=== PATIENT | female | born 2000 | race Caucasian/White ===

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

== ENCOUNTER 2018-03-27 10:14 | Day surgery (SDC) | payer OTHER ==
--- NOTE | 2018-03-27 09:54 | ANESTHESIA ---
Pre-Anesthesia VS, & Labs <Julio Davidson P - Last Filed: 03/27/18 09:48> - NPO >8 hours - Is Patient ?: No <Hawa Pettit - Last Filed: 03/27/18 11:08> - Diagnosis R ankle ATFL tear (Julio Davidson P) R ankle ATFL tear (Hawa Pettit) - Procedure R ankle Brostrom procedure (Julio Davidson P) R ankle Brostrom procedure (Hawa Pettit) Vital Signs: Temp Pulse Resp BP Pulse Ox 37 C 101 H 18 124/87 H 97 03/27/18 10:30 03/27/18 10:30 03/27/18 10:30 03/27/18 10:30 03/27/18 10:30 Height 5 ft 7 in Weight (kg) 79.38 kg Body Mass Index 28.1 Home Medications and Allergies <Julio Davidson P - Last Filed: 03/27/18 09:48> <Hawa Pettit E - Last Filed: 03/27/18 11:08> No Known Home Medications 10/20/17 Allergies/Adverse Reactions: Allergies Allergy/AdvReac Type Severity Reaction Status Date / Time Sulfa (Sulfonamide AdvReac Rash Verified 03/17/18 14:56 Antibiotics) Anes History & Medical History - Medical History Cardiovascular: reports: None Pulmonary: reports: None Gastrointestinal: reports: None Urinary: reports: None Musculoskeletal: reports: Other Endocrine/Autoimmune: reports: None Skin: reports: None Smoking Status: Never smoker <Julio Davidson P - Last Filed: 03/27/18 09:48> - Anesthetic History Anesthesia Complications: reports: No previous complications Family history of Anesthesia Complications: Denies - Medical History Cardiovascular: reports: None Pulmonary: reports: Asthma, Other (quit smoking, now only vapes) Gastrointestinal: reports: None Urinary: reports: None Blood Disorders: reports: Anemia <Hawa Pettit E - Last Filed: 03/27/18 11:08> Exam General: Alert Mallampati classification: II Respiratory: Lungs clear Cardiovascular: Regular rate <Hawa Pettit - Last Filed: 03/27/18 11:08> Plan Anesthesia Type: General Consent for Procedure(s) Verified and Reviewed: Yes Code Status: Attempt Resuscitation ASA classification: 2-Mild systemic disease <Julio Davidson P - Last Filed: 03/27/18 09:48> Anesthesia Type: General Consent for Procedure(s) Verified and Reviewed: Yes Code Status: Attempt Resuscitation ASA classification: 2-Mild systemic disease Is this case an emergency?: No <Hawa Pettit E - Last Filed: 03/27/18 11:08>
[~2018-03-27 10:14] MED LIST: ceFAZolin 2 GM/50 ML 2 GM/50 ML BAG IV ONE
[2018-03-27 10:40] LABS: HCG UR QUAL NEGATIVE
[2018-03-27] MEDS ORDERED: LACTATED RINGERS 1,000 ML IV ONE ×3 (11:05→14:46)
[2018-03-27] MEDS ORDERED: BUPIVACAINE 0.25%-EPI 1:200000 PF 30 ML VIAL ONE (11:30)
[2018-03-27] MEDS ORDERED: BUPIVACAINE 0.25%-EPI 1:200000 PF 10 ML VIAL SUBQ ONE (12:45)
[2018-03-27] MEDS ORDERED: DEXAMETHASONE 4 MG/ML VIAL IVP ONE (13:00)
[2018-03-27] MEDS ORDERED: GLYCOPYRROLATE 1 MG/5 ML VIAL IVP ONE (13:00)
[2018-03-27] MEDS ORDERED: PROPOFOL 200 MG/20 ML VIAL IVP ONE (13:00)
[2018-03-27] MEDS ORDERED: ROCURONIUM 50 MG/5 ML VIAL IVP ONE (13:00)
[2018-03-27] MEDS ORDERED: ONDANSETRON 4 MG/2 ML VIAL IVP ONE (13:00)
[2018-03-27] MEDS ORDERED: ACETAMINOPHEN 1,000 MG/100 ML 100 ML IV ONE (13:00)
[2018-03-27] MEDS ORDERED: MIDAZOLAM 2 MG/2 ML VIAL IVP ONE (13:00)
[2018-03-27] MEDS ORDERED: fentaNYL 100 MCG/2 ML VIAL IVP ONE (13:00)
[2018-03-27] MEDS ORDERED: LIDOCAINE-MPF 2% 5 ML VIAL IM ONE (13:00)
[2018-03-27] MEDS ORDERED: NEOSTIGMINE 1 MG/1 ML 10 ML MDV IVP ONE (13:00)
[2018-03-27] MEDS ORDERED: ONDANSETRON 4 MG/2 ML VIAL IVP PRN (13:17)
[2018-03-27] MEDS ORDERED: HYDROmorphone 0.5 MG/0.5 ML SYRINGE IVP PRN (13:17)
[2018-03-27] MEDS ORDERED: oxyCODONE 5 MG TABLET PO PRN (13:17)
[2018-03-27] MEDS ORDERED: ONDANSETRON 4 MG/2 ML VIAL ONE (13:26)
[2018-03-27] MEDS: HYDROmorphone 1 MG/ML CARPUJECT ONE ×4 (13:40→14:14)
--- NOTE | 2018-03-27 14:02 | OPERATIVE REPORT ---
Operative Report - General Procedure Date: 03/27/18 Planned Procedure: Right ankle lateral ligament reconstruction Pre-Op Diagnosis: Right ankle instability Procedure Performed: Right ankle lateral ligament reconstruction with suture anchors Post Op Diagnosis: Right ankle instability - Procedure Note Primary Surgeon: Carlin Denis MD Secondary Surgeon: Jef Toledo MD Anesthesia Technique: General ET tube Estimated Blood Loss (mL): 5 Complications: None - Other Other Information/Narrative: TOURNIQUET TIME: Approximately 64 minutes at 250mmHg,Right proximal thigh. IMPLANTS: Two Arthrex 2.4mm BioComposite mini Bio-SutureTak anchors, [] distal fibula. COMPLICATIONS: None. INDICATIONS FOR SURGERY: 17 y/oF with a history of multiple right ankle inversion injuries with lateral ankle pain and instability. They have attempted bracing and physical therapy without resolution. Exam as significant for fullness in the lateral ankle, tenderness over the ATFL region, and laxity on anterior drawer testing. MRI showed ATFL attenuation with a high grade partial tearing of the CFL. They were counseled on treatment options including continued non operative as well as operative treatment in the form of right ankle lateral stabilization (Brostrom) and after discussion of risks, benefits, and alternatives informed consent was obtained and they wished to proceed. FINDINGS: 1. After open dissection was made through a lateral curvilinear incision, the ATFL was found to be torn with thickened scar tissue off of the distal anterior fibula. The CFL was torn with a few fibers intact. The peroneal tendons were intact without nodularity and demonstrated no subluxation. PROCEDURE: The patient was met in the Preoperative Holding Area, at which time preoperative paperwork was confirmed. The [] lower extremity was signed. The patient was then brought to the Main Operating Room, placed supine on the operative table. Preoperative antibiotics were administered in the form of 2g of intravenous Ancef. General anesthesia was induced. They were then positioned in the lateral decubitus position on a low bag. All bony prominences were well padded and the fibular head was floated off of the table. A non-sterile tourniquet was placed high on the [] thigh. The patient was then prepped and draped in normal sterile fashion. A final timeout was conducted again to confirm correct patient, correct extremity and correct procedure, and confirm that antibiotics had been administered within 30 minutes of incision time. After this was confirmed, the operative extremity was exsanguinated with an Esmarch bandage, tourniquet inflated to 250mmHg. An 8cm incision was made over the lateral ankle coursing just anterior to the peroneal tendons. Incision was made through skin and subcutaneous tissue down to the fibula. Full-thickness skin flaps were then elevated anteriorly as well as posteriorly. The capsule anterior and inferior to the fibular tip was opened. The peroneal tendons were identifed and protected. The CFL was noted to be partially torn and elongated . The ATFL was noted to be torn, attenuated and surrounded by thickened scar tissue. The scar tissue was incised leaving a 2mm cuff off of the distal anterio r fibula. This cuff was then elevated subperiosteally. The anterior distal fibula bone was then prepped, creating a small trough using a rongeur as well as a curet. The CFL was also incised, leaving a 3mm cuff of CFL off of the distal fibula at the anatomic footprint. The bone at the CFL insertion was also prepped. Two 2.4mm Arthrex BioComposite SutureTak anchors were then inserted, the first at the CFL footprint and the second at the ATFL footprint. The limb was elevated from the table via the suture anchors to ensure secure fixation. The CFL suture anchor was then passed distally through the CFL amd capsule and pulled taut. The ATFL suture was then passed in similar fashion through the ATFL tissue and capsule in the anatomic location. The ankle was placed in neutral dorsiflexion and slight eversion and the sutures were tied. The sutures were then passed proximally from deep to superficial through the previously elevated periosteal tissue. The sutures were again tied. The sutures were then passed distally through the periosteal sleeve and into the distal capsule where they were again secured. The sutures were cut, and the repair was backed up using 2-0 FiberWire and interrupted [id number] fashion. The ankle was then tested and noted to be stable to anterior drawer testing. The inferior retinaculum was then mobilized distally and sutured to the periosteal flap using an 2-0 fiberwire in a pileyy-[id number] fashion for the Starr modification portion of the procedure. The wound was then copiously irrigated with normal saline. Closure was then conducted using 0 Vicryl in a [id number] fashion for the deep tissue layer followed 2-0 vicryl in buried interrupted fashion for the deep dermal layer. The skin was then closed using 3-0 nylon in a running alternating simple / horizontal mattress suture fashion. 10 mL's of Marcaine with epinephrine was injected into the periwound soft tissue . The wounds were then dressed with Xeroform, plain 4x4 gauze, and wrapped in sterile Webril. The tourniquet was deflated. They were then placed in a L and U splint at neutral dorsiflexion and approximately 5 degrees of eversion, awakened from general anesthesia without complication, brought to the Postanesthesia Care Unit for further Recovery. POSTOPERATIVE PLAN: 1. The patient will be discharged from Same Day Surgery Unit when discharge criteria are met. 2. The patient will be non-weightbearing in a splint on the right lower extremity for the initial 2 weeks post operatively. They will follow up for splint removal, wound check, possible suture removal, and transition to a short leg NWB cast for an additional 2 weeks. They will then be transitioned to a Cam boot and start dorsiflexion, plantarflexion range of motion from 5-6 weeks postoperatively. 3. At 6 weeks postoperatively, they will start formal physical therapy and be transitioned to an ankle support orthosis. 4. Expect to return to run in approximately 3-4 months postoperatively and return to full activity at 4-5 months postoperatively. 5. DVT prophylaxis will be with aspirin 325mg daily for 4 weeks postoperatively. 6. Discharge precautions were provided to the patient in both written and verbal form.
[2018-03-27 16:12] VITALS: BP 116/73
--- NOTE | 2018-03-28 10:17 | XRAY Report ---
Reason: s/p ankle ligament reconstruction Procedure Date: 03/27/2018 Accession Number: [id number] / [id number] Procedure: XR - Ankle 3 View RT CPT Code: FULL RESULT: EXAM: RIGHT ANKLE RADIOGRAPHY EXAM DATE: 03/27/2018 02:33 PM. CLINICAL HISTORY: S/p ankle ligament reconstruction. COMPARISON: 10/28/2017. TECHNIQUE: 3 views. FINDINGS: Bones: Overlying cast material obscures fine bony detail. No new fracture lines are seen. Joints: Normal alignment of the ankle mortise. No subluxation. Soft Tissues: Decreased soft tissue swelling. IMPRESSION: 1. Normal ankle mortise alignment without evidence for fracture or dislocation. Decreased soft tissue swelling compared to prior. [facility]
== END 2018-03-27 10:15 | disposition home or self-care (01) ==
LOC: SDS 10:14
PROVIDERS: ATTEND Orthopaedic Surgery
PROC: 0LSS0ZZ Reposition Right Ankle Tendon, Open Approach (ICD-10-PCS; principal; 2018-03-27 11:15)
DX: S93.491A Sprain of other ligament of right ankle, initial encounter (principal); S93.411A Sprain of calcaneofibular ligament of right ankle, initial encounter; M25.371 Other instability, right ankle; F17.290 Nicotine dependence, other tobacco product, uncomplicated
CPT/HCPCS: 27698; 73610; 81025; C1713; J0131; J0690; J1170; J7120

== ENCOUNTER 2018-07-20 20:25 | Emergency (ER) | payer OTHER ==
[2018-07-20 20:32] VITALS: BP 143/89
[2018-07-20] MEDS ORDERED: ALBUTEROL NEB 2.5 MG/3 ML INH STA (20:39)
--- NOTE | 2018-07-20 20:41 | ED Physician Documentation ---
PD HPI URI - Stated complaint Stated Complaint: SOA/MOLD EXPOSURE - Chief complaint Chief Complaint: Resp - History obtained from History obtained from: Patient - History of Present Illness Timing - onset: Today (After cleaning out a closet that had mold in around 4 PM she had mild wheezing and shortness of breath. No chest pain. No possibility of . She has a history of mild asthma and does not currently have an inhaler.) Review of Systems Constitutional: denies: Fever, Chills Nose: denies: Rhinorrhea / runny nose, Congestion Cardiac: denies: Chest pain / pressure, Palpitations PD PAST MEDICAL HISTORY - Past Medical History Cardiovascular: None Respiratory: Asthma, Other (quit smoking, now only vapes) Endocrine/Autoimmune: None GI: None : None HEENT: None Psych: Depression, Anxiety Musculoskeletal: Other Derm: None - Past Surgical History Past Surgical History: No - Present Medications Home Medications: Ambulatory Orders Medication Instructions Recorded Confirmed Albuterol Sulf [Ventolin Hfa 1 - 2 puffs INH Q4HR PRN #1 inhaler 07/20/18 Inhaler] - Allergies Allergies/Adverse Reactions: Allergies Allergy/AdvReac Type Severity Reaction Status Date / Time Sulfa (Sulfonamide AdvReac Rash Verified 07/20/18 20:32 Antibiotics) - Social History Does the pt smoke?: No Smoking Status: Never smoker Does the pt drink ETOH?: No Does the pt have substance abuse?: No - Immunizations Immunizations are current?: Yes PD ED PE NORMAL - Vitals Vital signs reviewed: Yes - General General: Alert and oriented X 3, No acute distress - HEENT HEENT: PERRL, EOMI - Neck Neck: Supple, no meningeal sign, No bony TTP - Cardiac Cardiac: RRR, No murmur - Respiratory Respiratory: No respiratory distress, Other (Grossly clear with at most very faint expiratory wheezes) - Abdomen Abdomen: Non tender - Extremities Extremities: No edema - Neuro Neuro: Alert and oriented X 3, Normal speech Results - Vitals Vitals: Vital Signs - 24 hr 07/20/18 20:28 Temperature 36.7 C Heart Rate 93 Respiratory 17 Rate Blood Pressure 143/89 H O2 Saturation 98 Oxygen O2 Source Room air Departure - Departure Disposition: Home, Self Care Clinical Impression: Asthma Qualifiers: Asthma severity: mild Asthma persistence: intermittent Asthma complication type: with acute exacerbation Qualified Code(s): J45.21 - Mild intermittent asthma with (acute) exacerbation Condition: Good Record reviewed to determine appropriate education?: Yes Instructions: Asthma Dc Prescriptions: Albuterol Sulf [Ventolin Hfa Inhaler] 1 - 2 puffs INH Q4HR PRN #1 inhaler PRN Reason: Shortness Of Air/Wheezing Comments: Call your doctor to arrange a follow-up appointment, make the next available appointment. In the interim, return anytime if worse or if new symptoms develop. Your blood pressure was elevated today on check into the emergency department. This does not mean that you have hypertension, it is a common phenomenon to come to the emergency department and have elevated blood pressure. I recommend that you see your primary care physician within the week to have it rechecked when you are feeling better.
== END 2018-07-20 21:06 | disposition home or self-care (01) ==
LOC: ED 20:25
DX: J45.21 Mild intermittent asthma with (acute) exacerbation (principal); R03.0 Elevated blood-pressure reading, without diagnosis of hypertension
CPT/HCPCS: 94640; 94664; 99283

== ENCOUNTER 2018-08-18 13:46 | Emergency (ER) | payer OTHER ==
--- NOTE | 2018-08-18 14:41 | ED Physician Documentation ---
PD HPI URI - Stated complaint Stated Complaint: COUGH - Chief complaint Chief Complaint: Resp - History obtained from History obtained from: Patient, Family - History of Present Illness Timing - onset: How many weeks ago (3) Timing duration: Weeks (3) Timing details: Gradual onset Pain level max: 0 Pain level now: 0 Associated symptoms: Nasal congestion, Rhinorrhea, Dry cough. No: Fever, Chills Contributing factors: Sick contact, Other (Has used inhalers in the past). 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 : None HEENT: None Psych: Depression, Anxiety Musculoskeletal: None, Other Derm: None - Past Surgical History Past Surgical History: Yes Ortho: Other - Present Medications Home Medications: Ambulatory Orders Medication Instructions Recorded Confirmed Albuterol Sulf [Ventolin Hfa 1 - 2 puffs INH Q4HR PRN #1 inhaler 07/20/18 Inhaler] Benzonatate [Tessalon Perle] 100 - 200 mg PO TID PRN #30 capsule 08/18/18 Cetirizine HCl/Pseudoephedrine 1 each PO BID PRN #30 tab.er.12h 08/18/18 [Zyrtec-D Tablet] - Allergies Allergies/Adverse Reactions: Allergies Allergy/AdvReac Type Severity Reaction Status Date / Time Sulfa (Sulfonamide AdvReac Rash Verified 08/18/18 14:01 Antibiotics) - Social History Does the pt smoke?: Yes Smoking Status: Current some day smoker Does the pt drink ETOH?: No Does the pt have substance abuse?: No - Immunizations Immunizations are current?: Yes - POLST Patient has POLST: No PD ED PE NORMAL - Vitals Vital signs reviewed: Yes - General General: Alert and oriented X 3, No acute distress, Well developed/nourished - HEENT HEENT: PERRL, Ears normal, Moist mucous membranes, Pharynx benign - Neck Neck: Supple, no meningeal sign, No adenopathy - Cardiac Cardiac: RRR, Strong equal pulses - Respiratory Respiratory: No respiratory distress, Clear bilaterally - Abdomen Abdomen: Soft, Non tender, Non distended - Derm Derm: Warm and dry - Neuro Neuro: Alert and oriented X 3 - Psych Psych: Normal mood, Normal affect Results - Vitals Vitals: Vital Signs - 24 hr 08/18/18 08/18/18 14:00 15:10 Temperature 36.9 C Heart Rate 98 87 Respiratory 20 18 Rate Blood Pressure 139/79 H 115/76 O2 Saturation 99 98 Oxygen O2 Source Room air - Rads (name of study) Chest x-ray Radiology: Prelim report reviewed, EMP read contemporaneously, See rad report (No acute disease) PD MEDICAL DECISION MAKING - ED course Complexity details: reviewed results, re-evaluated patient, considered differential, d/w patient ED course: 18-year-old female presents to the emergency room throat appears to be a viral upper respiratory infection. She is well-appearing, nontoxic. No acute findin gs on chest x-ray. We will continue supportive care and follow-up with her doctor. Patient counseled regarding signs and symptoms for which I believe and urgent re-evaluation would be necessary. Patient with good understanding of and agreement to plan and is comfortable going home at this time This document was made in part using voice recognition software. While efforts are made to proofread this document, sound alike and grammatical errors may occur. Departure - Departure Disposition: 01 Home, Self Care Clinical Impression: Viral URI with cough Condition: Good Instructions: ED URI Viral Follow-Up: Juan Zhou ARNP [Primary Care Provider] - Within 1 week Prescriptions: Benzonatate [Tessalon Perle] 100 - 200 mg PO TID PRN #30 capsule PRN Reason: Cough Cetirizine HCl/Pseudoephedrine [Zyrtec-D Tablet] 1 each PO BID PRN #30 tab.er.12h PRN Reason: nasal congestion Comments: Your x-ray does not show any pneumonia today. Use the medications as prescribed. Return if you worsen. This should improve over the next week. Discharge Date/Time: 08/18/18 15:11
--- NOTE | 2018-08-18 14:54 | XRAY Report ---
Reason: cough Procedure Date: 08/18/2018 Accession Number: [id number] / [id number] Procedure: XR - Chest 2 View X-Ray CPT Code: 90529 FULL RESULT: EXAM: CHEST RADIOGRAPHY EXAM DATE: 08/18/2018 02:50 PM. CLINICAL HISTORY: Cough. COMPARISON: None. TECHNIQUE: 2 views. FINDINGS: Lungs/Pleura: No focal opacities evident. No pleural effusion. No pneumothorax. Normal volumes. Mediastinum: Heart and mediastinal contours are unremarkable. Other: No acute osseous abnormality. IMPRESSION: Normal 2-view chest radiography. No focal pulmonary consolidation. [facility]
[2018-08-18 15:11] VITALS: BP 115/76
== END 2018-08-18 15:11 | disposition home or self-care (01) ==
LOC: ED 13:46
DX: J06.9 Acute upper respiratory infection, unspecified (principal); B97.89 Other viral agents as the cause of diseases classified elsewhere; F17.200 Nicotine dependence, unspecified, uncomplicated
CPT/HCPCS: 71046; 99283

== ENCOUNTER 2018-12-21 18:52 | Emergency (ER) | payer OTHER ==
[2018-12-21 18:57] VITALS: BP 144/85
[2018-12-21] MEDS ORDERED: IBUPROFEN 800 MG TABLET PO STA (19:05)
[2018-12-21] MEDS ORDERED: ONDANSETRON ODT 4 MG TABLET TL STA (19:05)
--- NOTE | 2018-12-21 19:06 | ED Physician Documentation ---
History of Present Illness - Stated complaint Stated Complaint: CAMPOS/N/SORE THROAT - Chief complaint Chief Complaint: General - History obtained from History obtained from: Patient - History of Present Illness Timing: Other (For the last 3 days she has had nausea after eating with 2 episodes of vomiting. Fairly normal bowel movements. Sore and scratchy throat. Stomach upset without stomach pain. Moderate headache. 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 denies: Fever, Chills Nose: denies: Rhinorrhea / runny nose Throat: reports: Sore throat Respiratory: reports: Cough (minor) GI: reports: Nausea, Vomiting. 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 : None HEENT: None Psych: Depression, Anxiety Musculoskeletal: None, Other Derm: None - Past Surgical History Past Surgical History: Yes Ortho: Other - Present Medications Home Medications: Ambulatory Orders Medication Instructions Recorded Confirmed Albuterol Sulf [Ventolin Hfa 1 - 2 puffs INH Q4HR PRN #1 inhaler 07/20/18 Inhaler] Benzonatate [Tessalon Perle] 100 - 200 mg PO TID PRN #30 capsule 08/18/18 Cetirizine HCl/Pseudoephedrine 1 each PO BID PRN #30 tab.er.12h 08/18/18 [Zyrtec-D Tablet] Nitrofurantoin Monohyd/M-Cryst 100 mg PO BID #10 capsule 12/21/18 [Macrobid 100 mg Capsule] Ondansetron Odt [Zofran] 4 mg TL Q6H PRN #10 tablet 12/21/18 - Allergies Allergies/Adverse Reactions: Allergies Allergy/AdvReac Type Severity Reaction Status Date / Time Sulfa (Sulfonamide AdvReac Rash Verified 08/18/18 14:01 Antibiotics) - Social History Does the pt smoke?: Yes Smoking Status: Current some day smoker Does the pt drink ETOH?: No Does the pt have substance abuse?: No - Immunizations Immunizations are current?: Yes - POLST Patient has POLST: No PD ED PE NORMAL - Vitals Vital signs reviewed: Yes - General General: Alert and oriented X 3, No acute distress - HEENT HEENT: PERRL, EOMI, Other (red tonsillar pillars) - Neck Neck: Supple, no meningeal sign, No bony TTP - Cardiac Cardiac: RRR, No murmur - Respiratory Respiratory: No respiratory distress, Clear bilaterally - Abdomen Abdomen: Normal bowel sounds, Soft, Non tender - Back Back: No CVA TTP, No spinal TTP - Derm Derm: No rash - Neuro Neuro: Alert and oriented X 3, Normal speech Results - Vitals Vitals: Vital Signs - 24 hr 12/21/18 18:54 Temperature 36.5 C Heart Rate 94 Blood Pressure 144/85 H O2 Saturation 98 Oxygen O2 Source Room air - Labs Labs: Laboratory Tests 12/21/18 12/21/18 19:05 19:54 Urine Color YELLOW Urine Clarity HAZY Urine pH 7.5 Ur Specific [place] 1.015 Urine Protein NEGATIVE Urine Glucose (UA) NEGATIVE Urine Ketones NEGATIVE Urine Occult Blood NEGATIVE Urine Nitrite NEGATIVE Urine Bilirubin NEGATIVE Urine Urobilinogen 0.2 (NORMAL) Ur Leukocyte Esterase SMALL H Ur Microscopic Review INDICATED Urine Culture Comments Not Reportable Urine HCG, Qual NEGATIVE Group A Strep Rapid Negative PD MEDICAL DECISION MAKING - ED course ED course: 18-year-old woman presents with sore throat headache and nausea. Strep test is negative but her urinalysis is positive for UTI which is treated with Macrobid. No evidence of pyelonephritis. Departure - Departure Disposition: 01 Home, Self Care Clinical Impression: Nausea, Viral pharyngitis UTI (urinary tract infection) Qualifiers: Urinary tract infection type: site unspecified Hematuria presence: without hematuria Qualified Code(s): N39.0 - Urinary tract infection, site not specified Condition: Good Record reviewed to determine appropriate education?: Yes Instructions: ED UTI Cystitis Female, ED Pharyngitis Viral Report Pending Prescriptions: Nitrofurantoin Monohyd/M-Cryst [Macrobid 100 mg Capsule] 100 mg PO BID #10 capsule Ondansetron Odt [Zofran] 4 mg TL Q6H PRN #10 tablet PRN Reason: Nausea / Vomiting Comments: Call your doctor to arrange a follow-up appointment, make the next available appointment. In the interim, return anytime if worse or if new symptoms develop. Your blood pressure was elevated today on check into the emergency department. This does not mean that you have hypertension, it is a common phenomenon to come to the emergency department and have elevated blood pressure. I recommend that you see your primary care physician within the week to have it rechecked when you are feeling better. Forms: Activity restrictions
[2018-12-21 20:01] LABS: BILIRUBIN,URINE NEGATIVE (NEGATIVE); GLUCOSE, URINE (UA) NEGATIVE (NEGATIVE); KETONES,URINE (UA) NEGATIVE (NEGATIVE); LEUKOCYTE ESTERASE, URINE SMALL (NEGATIVE); NITRITE,URINE NEGATIVE (NEGATIVE); OCCULT BLOOD,URINE NEGATIVE (NEGATIVE); PH,URINE 7.5 PH (5.0-7.5); PROTEIN,URINE NEGATIVE (NEGATIVE); UROBILINOGEN,URINE 0.2 (NORMAL) E.U./dL (NORMAL)
[2018-12-21 20:05] LABS: CLARITY,URINE HAZY (CLEAR); HCG UR QUAL NEGATIVE
[2018-12-21] MEDS ORDERED: NITROFURANTOIN MACRO 100 MG CAPSULE PO STA (20:08)
[2018-12-21 20:14] LABS: BACTERIA,URINE Few /HPF (None Seen); RBC,URINE 0-5 /HPF (0-5); SQUAMOUS EPITHELIAL CELL,UR MANY Squamous (<= Few)
== END 2018-12-21 20:18 | disposition home or self-care (01) ==
LOC: ED 18:52
DX: J02.8 Acute pharyngitis due to other specified organisms (principal); B97.89 Other viral agents as the cause of diseases classified elsewhere; N39.0 Urinary tract infection, site not specified; R11.0 Nausea; R03.0 Elevated blood-pressure reading, without diagnosis of hypertension; F17.200 Nicotine dependence, unspecified, uncomplicated
CPT/HCPCS: 81001; 81025; 87070; 87077; 87430; 99283; 99284; A9270; Q0162; 81003; 87086

== ENCOUNTER 2019-04-20 19:46 | Outpatient (CLI) | payer OTHER | END 2019-04-20 19:47 | disposition critical access hospital (66) | LOC: EMS 19:46 | PROVIDERS: ATTEND Surgery | DX: R10.84 Generalized abdominal pain (principal); R06.02 Shortness of breath; R11.0 Nausea; R19.7 Diarrhea, unspecified; R05 Cough | CPT/HCPCS: A0425; A0429 ==

== ENCOUNTER 2019-04-20 20:05 | Emergency (ER) | payer OTHER ==
[2019-04-20 20:39] LABS: BASOPHILS # (AUTO) 0.1 10^3/uL (0.0-0.1); BASOPHILS % (AUTO) 0.7 %; EOSINOPHILS # (AUTO) 0.2 10^3/uL (0.0-0.7); HGB - HEMOGLOBIN 12.7 g/dL (12.0-16.0); LYMPHOCYTES # (AUTO) 2.4 10^3/uL (1.5-3.5); LYMPHOCYTES % (AUTO) 24.2 %; MEAN CORPUSCULAR HEMOGLOBIN 29.7 pg (27.0-31.0); MEAN CORPUSCULAR HGB CONC 31.9 g/dL (32.0-36.0); MEAN PLATELET VOLUME 10.2 fL (7.9-10.8); MONOCYTES # (AUTO) 0.7 10^3/uL (0.0-1.0); MONOCYTES % (AUTO) 6.7 %; NEUTROPHILS # (AUTO) 6.5 10^3/uL (1.5-6.6); NEUTROPHILS % (AUTO) 65.6 %; PLT - PLATELET COUNT 288 10^3/uL (130-450); RED BLOOD COUNT 4.28 10^6/uL (4.20-5.40); RED CELL DISTRIBUTION WIDTH 12.2 % (12.0-15.0); WHITE BLOOD COUNT 9.9 x10^3/uL (4.8-10.8)
[2019-04-20] MEDS ORDERED: ONDANSETRON 4 MG/2 ML VIAL IVP STA (20:52)
[2019-04-20 20:53] LABS: ALBUMIN 4.4 g/dL (3.2-5.5); ALBUMIN/GLOBULIN RATIO 1.4 (1.0-2.2); BILIRUBIN,TOTAL 0.7 mg/dL (0.2-1.0); CALCIUM 8.9 mg/dL (8.5-10.3); CREATININE 0.7 mg/dL (0.4-1.0); TOTAL PROTEIN 7.6 g/dL (6.7-8.2)
--- NOTE | 2019-04-20 21:12 | ED Physician Documentation ---
PD HPI ABD PAIN - Stated complaint Stated Complaint: ABD PAIN/ CRAMPING - Chief complaint Chief Complaint: Abd Pain - History obtained from History obtained from: Patient - History of Present Illness Timing - onset: Today Timing - duration: Hours Timing - details: Abrupt onset, Still present, Waxing and waning Quality: Sharp, Pain Location: Epigastric, LUQ Radiation: Upper back Improved by: Vomiting, Other (leaning foreward) Worsened by: Eating Associated symptoms: Nausea, Vomiting, Diarrhea Similar symptoms before: Has not had sx before Recently seen: Not recently seen - Additional information Additional information: Previously well 18-year-old female developed some abdominal pain 4 days ago when she was eating some salsa. This eventually resolved and she has developed pain again today that is severe. She is had some vomiting associated with it she has had some diarrhea as well. She denies any acholic stool. She has taken some Aleve today and she also took some [id number] preparation for menstrual cramps as she has started her menses. Review of Systems Constitutional: denies: Fever Eyes: denies: Decreased vision Ears: denies: Ear pain Nose: denies: Congestion Throat: denies: Sore throat Cardiac: denies: Chest pain / pressure, Palpitations Respiratory: denies: Dyspnea, Cough GI: reports: Abdominal Pain, Nausea, Vomiting, Diarrhea : denies: Dysuria, Frequency Skin: denies: Rash Musculoskeletal: denies: Neck pain, Back pain, Extremity pain Neurologic: denies: Generalized weakness, Focal weakness, Numbness PD PAST MEDICAL HISTORY - Past Medical History Cardiovascular: None Respiratory: Asthma, Other Neuro: None Endocrine/Autoimmune: None GI: None 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 : None HEENT: None Psych: Depression, Anxiety Musculoskeletal: None, Other Derm: None - Past Surgical History Past Surgical History: Yes Ortho: Other - Present Medications Home Medications: Ambulatory Orders Medication Instructions Recorded Confirmed Albuterol Sulf [Ventolin Hfa 1 - 2 puffs INH Q4HR PRN #1 inhaler 07/20/18 Inhaler] Benzonatate [Tessalon Perle] 100 - 200 mg PO TID PRN #30 capsule 08/18/18 Cetirizine HCl/Pseudoephedrine 1 each PO BID PRN #30 tab.er.12h 08/18/18 [Zyrtec-D Tablet] Nitrofurantoin Monohyd/M-Cryst 100 mg PO BID #10 capsule 12/21/18 [Macrobid 100 mg Capsule] Ondansetron Odt [Zofran] 4 mg TL Q6H PRN #10 tablet 12/21/18 Sucralfate [Carafate] 1 gm PO ACHS #60 tablet 04/20/19 - Allergies Allergies/Adverse Reactions: Allergies Allergy/AdvReac Type Severity Reaction Status Date / Time Sulfa (Sulfonamide AdvReac Rash Verified 04/20/19 20:15 Antibiotics) - Social History Does the pt smoke?: Yes Smoking Status: Current every day smoker Does the pt drink ETOH?: No Does the pt have substance abuse?: No - Immunizations Immunizations are current?: Yes - POLST Patient has POLST: No PD ED PE NORMAL - Vitals Vital signs reviewed: Yes (normal ) - General General: Alert and oriented X 3, Well developed/nourished, Other (The patient is anxious and appears to be in mild pain.) - HEENT HEENT: Atraumatic, PERRL, EOMI - Neck Neck: Supple, no meningeal sign, No bony TTP - Cardiac Cardiac: RRR, No murmur - Respiratory Respiratory: No respiratory distress, Clear bilaterally - Abdomen Abdomen: Soft, Other (mild epigastric and lUQ pain without gaurding. 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1 Absolute Nucleated RBC 0.00 Nucleated RBC % 0.0 Sodium 136 Potassium 3.4 L Chloride 102 Carbon Dioxide 25 Anion Gap 9.0 BUN 16 Creatinine 0.7 Estimated GFR (MDRD) 107 Glucose 101 H Calcium 8.9 Total Bilirubin 0.7 AST 20 ALT 15 Alkaline Phosphatase 71 Total Protein 7.6 Albumin 4.4 Globulin 3.2 Albumin/Globulin Ratio 1.4 Lipase 30 PD MEDICAL DECISION MAKING - ED course Complexity details: reviewed old records, reviewed results, re-evaluated patient, considered differential, d/w patient, d/w family ED course: Previously well 18-year-old female has developed epigastric pain after taking Aleve earlier today and the pain is severe. She has complete resolution of her pain with use of viscous lidocaine and Mylanta and this last temporarily. She is administered Protonix 40 mg intravenously and Carafate 1 g orally. I discussed with the patient the insult of the stomach related to anti- inflammatories and recommended she not take these. We will place her on a course of Carafate and I have encouraged her to take [id number] acid reducing medication. Departure - Departure Disposition: 01 Home, Self Care Clinical Impression: Gastritis Qualifiers: Gastritis type: other gastritis Chronicity: acute Gastritis bleeding: without bleeding Qualified Code(s): K29.00 - Acute gastritis without bleeding Condition: Stable Instructions: ED PUD Vs Gastritis Follow-Up: Juan Zhou ARNP [Primary Care Provider] - Prescriptions: Sucralfate [Carafate] 1 gm PO ACHS #60 tablet Comments: Today it appears your abdominal pain is related to an insult to your stomach from aleve. This class of medication are hard on the stomach and I recommend that you no use these. For the next 2 weeks take a medication to reduce the acid in your stomach such as nexium or pepcid. In addition we have prescribed a me dication to aid in healing of the stomach.
[2019-04-20] MEDS ORDERED: MAG HYDROX/AL HYDROX/SIMETH 30 ML UDC PO STA (21:22)
[2019-04-20] MEDS ORDERED: LIDOCAINE VISCOUS 2% 15 ML UDC MM STA (21:22)
[2019-04-20] MEDS ORDERED: PANTOPRAZOLE 40 MG VIAL IVP STA (21:42)
[2019-04-20] MEDS ORDERED: SUCRALFATE 1 GM/10 ML UDC PO STA (21:50)
[2019-04-20 22:12] LABS: BILIRUBIN,URINE NEGATIVE (NEGATIVE); CLARITY,URINE CLEAR (CLEAR); GLUCOSE, URINE (UA) NEGATIVE (NEGATIVE); KETONES,URINE (UA) NEGATIVE (NEGATIVE); LEUKOCYTE ESTERASE, URINE NEGATIVE (NEGATIVE); NITRITE,URINE NEGATIVE (NEGATIVE); OCCULT BLOOD,URINE NEGATIVE (NEGATIVE); PH,URINE 6.5 PH (5.0-7.5); PROTEIN,URINE NEGATIVE (NEGATIVE); UROBILINOGEN,URINE 0.2 (NORMAL) E.U./dL (NORMAL)
[2019-04-20 22:14] LABS: HCG UR QUAL NEGATIVE
[2019-04-20 22:15] VITALS: BP 117/81
== END 2019-04-20 22:16 | disposition home or self-care (01) ==
LOC: EDUNIT# → ED 20:05
DX: K29.00 Acute gastritis without bleeding (principal); F17.200 Nicotine dependence, unspecified, uncomplicated
CPT/HCPCS: 36415; 80053; 81003; 81025; 83690; 85025; 96374; 96375; 99283; 99284; A9270; 81001; 87086

== ENCOUNTER 2019-06-30 10:13 | Emergency (ER) | payer OTHER ==
--- NOTE | 2019-06-30 11:43 | ED Physician Documentation ---
PD HPI URI - Stated complaint Stated Complaint: COUGH/SORE THROAT - Chief complaint Chief Complaint: Resp - History obtained from History obtained from: Patient - History of Present Illness Timing - onset: How many days ago (several) Timing duration: Days Timing details: Gradual onset, Still present (worsening) Associated symptoms: Fever, Sore throat, Swollen nodes, Productive cough, Dyspnea. No: Nasal congestion, NVD Contributing factors: COPD / asthma. 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 : None HEENT: None Psych: Depression, Anxiety Musculoskeletal: None, Other Derm: None - Past Surgical History Past Surgical History: Yes Ortho: Other - Present Medications Home Medications: Ambulatory Orders Medication Instructions Recorded Confirmed Amoxicillin 500 mg PO TID #21 capsule 06/30/19 Benzonatate [Tessalon Perle] 100 - 200 mg PO TID PRN #30 capsule 06/30/19 dexAMETHasone [Decadron] 4 mg PO DAILY #5 tablet 06/30/19 - Allergies Allergies/Adverse Reactions: Allergies Allergy/AdvReac Type Severity Reaction Status Date / Time Sulfa (Sulfonamide AdvReac Rash Verified 06/30/19 10:25 Antibiotics) - Social History Does the pt smoke?: Yes Smoking Status: Current every day smoker Does the pt drink ETOH?: No Does the pt have substance abuse?: No - Immunizations Immunizations are current?: Yes - POLST Patient has POLST: No PD ED PE NORMAL - Vitals Vital signs reviewed: Yes - General General: Alert and oriented X 3, No acute distress, Well developed/nourished - HEENT HEENT: Ears normal, Moist mucous membranes, Pharynx benign - Neck Neck: Supple, no meningeal sign, No adenopathy - Cardiac Cardiac: RRR, No murmur - Respiratory Respiratory: No: Clear bilaterally (scattered wheezes; no coarse sounds. ) - Abdomen Abdomen: Soft, Non tender - Back Back: No CVA TTP - Derm Derm: Normal color, Warm and dry Results - Vitals Vitals: Vital Signs - 24 hr 06/30/19 06/30/19 10:22 12:34 Temperature 36.8 C 36.7 C Heart Rate 98 88 Respiratory 18 18 Rate Blood Pressure 144/86 H 121/72 O2 Saturation 100 99 Oxygen O2 Source Room air - Rads (name of study) chest xray Radiology: Prelim report reviewed (peribronchial thickening may represent bronchitis), See rad report PD MEDICAL DECISION MAKING - ED course Complexity details: considered differential (productive cough in person with asthma, so may benefit from abx and steroids. ), d/w patient Departure - Departure Disposition: 01 Home, Self Care Clinical Impression: Upper respiratory infection Qualifiers: URI type: unspecified URI Qualified Code(s): J06.9 - Acute upper respiratory infection, unspecified Bronchitis, acute Qualifiers: Bronchitis organism: unspecified organism Qualified Code(s): J20.9 - Acute bronchitis, unspecified Condition: Stable Record reviewed to determine appropriate education?: Yes Instructions: ED URI Viral W Wheezing Follow-Up: Juan Zhou ARNP [Primary Care Provider] - Prescriptions: Amoxicillin 500 mg PO TID #21 capsule Benzonatate [Tessalon Perle] 100 - 200 mg PO TID PRN #30 capsule PRN Reason: Cough dexAMETHasone [Decadron] 4 mg PO DAILY #5 tablet Comments: Use your albuterol inhaler 2 puffs 4 times a day for the next several days to week. Decadron steroid for inflammation of the airways. Tessalon if needed for cough. Off work for 2 or 3 days due to illness. This are likely viral illness and see how much you improve in the next few days with the above medicines. If worsening symptoms, you could add on amoxicillin antibiotic but I would see how much improvement you get treated as viral first. Forms: Activity restrictions Discharge Date/Time: 06/30/19 12:47
--- NOTE | 2019-06-30 12:21 | XRAY Report ---
Reason: cough Procedure Date: 06/30/2019 Accession Number: [id number] / [id number] Procedure: XR - Chest 2 View X-Ray CPT Code: 22746 Final Report FULL RESULT: EXAM: CHEST RADIOGRAPHY EXAM DATE: 06/30/2019 12:02 PM. CLINICAL HISTORY: Cough. COMPARISON: CHEST 2 VIEW 08/18/2018 2:41 PM. TECHNIQUE: 2 views. FINDINGS: Lungs/Pleura: Peribronchial thickening right greater than left lower lobe. No pleural effusion. No pneumothorax. Normal volumes. Mediastinum: Heart and mediastinal contours are unremarkable. Other: None. IMPRESSION: Peribronchial thickening may represent bronchitis [facility]
[2019-06-30] MEDS ORDERED: DEXAMETHASONE 10 MG/ML VIAL PO STA (12:23)
[2019-06-30] MEDS ORDERED: BENZONATATE 100 MG CAPSULE PO STA (12:23)
[2019-06-30] MEDS ORDERED: CHERRY SYRUP 10 ML UDC PO ONE (12:23)
[2019-06-30 12:34] VITALS: BP 121/72
== END 2019-06-30 12:47 | disposition home or self-care (01) ==
LOC: ED 10:13
DX: J06.9 Acute upper respiratory infection, unspecified (principal); J20.9 Acute bronchitis, unspecified; F17.200 Nicotine dependence, unspecified, uncomplicated
CPT/HCPCS: 71046; 99283; 99284; A9270